=== PATIENT | male | born 1945 | race African-American/Black ===

== ENCOUNTER 2018-01-13 17:59 | Inpatient (IN) | payer MEDICARE, SELFPAY ==
[2018-01-13 18:28] LABS: Actual Bicarbonate (HCO3a) 20.8 mEq/L (22-26); Base Excess (BEa) -2.7 mEq/L (0 (+/-) 2.5); CO2 Tension 32.1 mmHg (35.0-45.0); Hematocrit-ABG 40.9 % (42.0-52.0); Hemoglobin (Hb) 12.5 g/dL (14.0-18.0); O2 Tension (PaO2) 369.3 mmHg (80.0-100.0); pH, Arterial 7.43 (7.35-7.45)
[2018-01-13 18:29] LABS: Analyzer IN Cardio ER; Calcium, Ionized 1.2 mmol/L (1.12-1.30); Puncture Site L FEM A-LINE
[2018-01-13 18:30] LABS: ALV-art Gradient -52.925 (0-20)
[2018-01-13 18:30] LABS: #Lymphocytes 0.8 thou/uL (1.20-3.40); #Monocytes 0.5 thou/uL (0.11-0.59); #Neutrophils 7.8 thou/uL (1.40-6.50); %Basophils 0.1 % (0.0-1.0); %Eosinophils 0.1 % (0.0-10.0); %Monocytes 5.9 % (0.0-10.0); %Neutrophils 84.9 % (42.0-75.0); Hemoglobin 13.5 g/dL (14.0-18.0); Mean Corpuscular HGB CONC 31.5 g/dL (32.0-36.0); Mean Corpuscular Hemoglobin 26.4 pg (27.0-31.0); Mean Corpuscular Volume 83.7 fl (80.0-94.0); Mean Platelet Volume 7.7 fL (7.4-10.4); RBC Distribution Width 13.2 % (11.5-14.5); Red Blood Cell (RBC) Count 5.13 mill/uL (4.70-6.10); White Blood Cell (WBC) Count 9.2 thou/uL (4.8-10.8)
[2018-01-13] MEDS ORDERED: Propofol 1,000 MG/100 ML VIAL IV ONE (18:30)
[2018-01-13] MEDS ORDERED: Lidocaine 1% w/Epinephrine 1:100K 20 ML VIAL ONE (18:33)
[2018-01-13 18:35] LABS: PTT 21.8 SEC (22.9-36.1); Prothrombin Time 13.6 SEC (12.0-14.7)
[2018-01-13 18:39] LABS: Large Platelets SLIGHT; MDiff Complete? YES; Ovalocytes SLIGHT = 2-5 cells (100X) (0-1/hpf); PLT Morphology Comment Appears Adequate; Platelet Count 131 thou/uL (130-400)
[2018-01-13 18:45] LABS: ALT (SGPT) 21 U/L (8-55); AST (SGOT) 25 U/L (5-34); Albumin 4.1 g/dL (3.4-4.8); Alkaline Phosphatase 69 U/L (40-150); Anion Gap 12 mmol/L (10-20); BUN (Urea Nitrogen) 19 mg/dL (8.4-25.7); Bilirubin, Total 0.7 mg/dL (0.2-1.2); Calc. Creatinine Clearance 0 mL/min (70-130); Calcium 9.1 mg/dL (7.8-10.44); Carbon Dioxide 22 mmol/L (23-31); Chloride 106 mmol/L (98-107); Estimated GFR-MDRD Greater than 90; Globulin 3.1 g/dL (2.4-3.5); Glucose 104 mg/dL (83-110); Potassium 3.7 mmol/L (3.5-5.1); Protein, Total 7.2 g/dL (5.8-8.1); Sodium 136 mmol/L (136-145)
[2018-01-13 18:54] LABS: Bilirubin Negative (Negative); Blood, Urine Small (Negative); Clarity CLEAR (Clear); Glucose, Urine (Dipstick) Negative (Negative); Leukocyte Negative (Negative); Nitrite Negative (Negative); Protein, Urine (Dipstick) Trace mg/dL (Neg-Trace); Specific Gravity, Urine 1.017 (1.002-1.036); Urobilinogen 0.2 mg/dL (0.2-1.0)
[2018-01-13 18:57] LABS: Bacteria/HPF None Seen HPF (None Seen); Hyaline Casts/LPF 0-3 HYALINE CAST LPF (0-3 Hyaline); Pathc Cast-AUWi Flag 0.29 (0-2.49); RBC/HPF 0-3 HPF (0-3); Squamous Epithelial 0-3 HPF (0-3); WBC/HPF 0-3 HPF (0-3)
[2018-01-13] MEDS ORDERED: Ondansetron HCl/PF 4 MG/2 ML Vial IVP PRN (19:20)
[2018-01-13] MEDS ORDERED: Ventilator Sedation Protocol 1 EACH FS ONE (19:20)
[2018-01-13] MEDS ORDERED: fentaNYL Citrate/PF 2,000 MCG in Sodium Chloride 0.9% 60 ML IV SCH (19:30)
[2018-01-13] MEDS ORDERED: Propofol 1,000 MG/100 ML VIAL IV PRN (19:30)
[2018-01-13] MEDS ORDERED: DISCONTINUE PREVIOUS NARCOTIC PAIN MEDICATIONS AND BENZODIAZEPINES FS SCH (19:30)
[2018-01-13] MEDS ORDERED: Morphine 2 MG/ML SYRINGE SLOW IVP PRN (19:30)
[2018-01-13] MEDS ORDERED: Fentanyl BOLUS 250 ML IVPB PRN (19:30)
[2018-01-13] MEDS ORDERED: Lorazepam 2 MG/ML VIAL SLOW IVP PRN (19:30)
--- NOTE | 2018-01-13 22:09 | CT ---
BRAIN CT WITHOUT IV CONTRAST: 01/13/18 HISTORY: 72-year-old male with history of trauma with interventricular hemorrhage was transferred from [facility]. Ventriculostomy tube was placed in the Emergency Room here. COMPARISON: 10/30/13. Large 3 x 4 cm diameter left periventricular and basal ganglia hemorrhage with extensive hemorrhage i nto the ventricular system including the lateral and third ventricles with some associated hydrocepha matthew. There is minimal hemorrhage extending into the fourth ventricle. There is approximately 1.2 cm of midline shift to the right. Right sided ventriculostomy tube in place. IMPRESSION: Large left basal ganglia intraparenchymal hemorrhage with extensive ventricular extension with marked mass effect and midline shift to the right. Ventriculostomy was placed emergently in the Emergency R oom. Hydrocephalus. On the prior 2013 study, there was an extensive right sided intraparenchymal and interventricular hem orrhage which has resolved since that old study. Continued short term followup. POS: SHERRI
--- NOTE | 2018-01-13 22:14 | CT ---
CT CERVICAL SPINE: 01/13/18 Multiple axial tomograms obtained through the cervical spine with multiplanar reconstruction. HISTORY: Head trauma with neck injury. Patient unresponsive and on respirator. 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 There is partial fusion of C2-3. 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 This produces a scoli otic curvature at this level. There are degenerative changes throughout the cervical spine with very prominent anterior osteophytes and posterior spondylitic changes especially pronounced at C3-4, C4-5, C5-6 levels. The posterior spondylitic changes results in encroachment on the spinal canal and there is foraminal stenosis on the left at C4-5 and bilateral foraminal stenosis at C5-6. No definite fracture identified. IMPRESSION: Congenital anomalies of the cervical spine. There is congenital fusion at C2-3 and there is a hemiver tebra on the right at C7 which produces scoliotic curvature. Prominent degenerative changes of the ce rvical spine. No definite cervical spine fracture identified. Posterior alignment is preserved. Findings relayed to the patient's nurse in CCU at time of dictation. POS: WILSON
[2018-01-13] MEDS: Vancomycin HCl 1.5 GM in Sodium Chloride 0.9% 250 ML 300 ML IVPB SCH (22:18)
[2018-01-13] MEDS: Sodium Chloride 0.9% 1,000 ML IV SCH (22:19)
--- NOTE | 2018-01-13 23:09 | PDOC.PN ---
- Subjective Encounter Start Date: 01/13/18 Encounter Start Time: 23:09 -: non-verbal Patient seen and examined. Consult for med mngt. On Mech Vent. Not following commands. No family at bedside. - Objective MAR Reviewed: Yes Vital Signs & Weight: Vital Signs (12 hours) Temp Pulse 01/13/18 22:44 86 01/13/18 21:00 98 F Weight Weight 137 lb 9.095 oz Most Recent Monitor Data Heart Rate from ECG 86 NIBP 140/80 NIBP BP-Mean 91 Respiration from ECG 8 SpO2 98 I&O: 01/12/18 01/13/18 01/14/18 06:59 06:59 06:59 Output Total 145 Balance -145 Result Diagrams: 01/13/18 18:11 01/13/18 18:11 Radiology Reviewed by me: Yes (CT brain - extensive left thalamic bleed) EKG Reviewed by me: Yes (SR) Phys Exam - Physical Examination Constitutional: NAD (on Mech Vent) Respiratory: no wheezing, no rales Symmetrical, Scat rhonchi Cardiovascular: RRR, no rub 2/6 SM at mitral area Gastrointestinal: soft, non-tender, no distention, positive bowel sounds Musculoskeletal: no edema Neuro/Psych - Cannot assess due to current mentation Psychiatric: A&O x 3 Skin: no rash Dx/Plan - Plan DVT proph w/SCDs IMPRESSION: 1. HTN - Will cont PRN Labetalol - Goal SBP < 150 2. ICH - Mngt per Primary team 3. Acute respiratory failure on mech ventilation due to #2 4. h/o Rt thalamic bleed in 2013 PLAN: * Cont PRN Labetalol * Add GI prophylaxis * SCDs for DVT prophylaxis * Will try to get more information from family in AM (No family at bedside) * Full code. DPOA - family - to be verified. Review of Systems - Review of Systems Other: Cannot obtain due to current mentation - Medications/Allergies Allergies/Adverse Reactions: Allergies Allergy/AdvReac Type Severity Reaction Status Date / Time No Known Drug Allergies Allergy Verified 01/13/18 20:28 Medications: Current Medications Vancomycin HCl 1.5 gm/ Sodium (Chloride) 300 mls @ 200 mls/hr IVPB Q12HR MORRIS Last Admin: 01/13/18 22:18 Dose: 300 mls Fentanyl Citrate 2,000 mcg/ (Sodium Chloride) 100 mls @ 0 mls/hr IV INF MORRIS; Per Protocol PRN Reason: Protocol Stop: 02/12/18 19:30 Fentanyl Citrate (Fentanyl Bolus) 250 mls @ 0 mls/hr IVPB PRN PRN; As Directed PRN Reason: Breakthrough pain Stop: 02/12/18 19:30 Sodium Chloride (Normal Saline 0.9%) 1,000 mls @ 75 mls/hr IV .[id number] MORRIS Last Admin: 01/13/18 22:19 Dose: 1,000 mls Labetalol HCl (Normodyne) 10 mg SLOW IVP Q2H PRN PRN Reason: SBP > 150 or DBP > 90 Lorazepam (Ativan) 2 mg SLOW IVP Q2H PRN PRN Reason: Anxiety to achieve Giraldo 2-3 Stop: 02/12/18 19:30 Morphine Sulfate (Morphine) 2 mg SLOW IVP Q2H PRN PRN Reason: Breakthrough pain Stop: 02/12/18 19:30 Discontinue Previous Narcotic Pain Medications And Benzodiazepines 1 each FS .ONE MORRIS Stop: 02/12/18 19:30 Ondansetron HCl (Zofran) 4 mg IVP BIDPRN PRN PRN Reason: Nausea/Vomiting Pneumococcal 13-Valent Conj Vacc (Prevnar) 0.5 ml IM .ONCE ONE Stop: 01/14/18 09:01 Propofol (Diprivan) 1,000 mg IV INF PRN; Protocol PRN Reason: TO ACHIEVE GIRALDO SCORE 2-3 Stop: 02/12/18 19:30 Sodium Chloride (Flush - Normal Saline) 10 ml IVF PRN PRN PRN Reason: Saline Flush History of Present Illnes - Past Medical History Cardiac: HTN (on no meds) MANAGER DAIRY: CVA (Rt thalamic bleed in 2013)
[2018-01-14] MEDS ORDERED: Acetaminophen 650 MG Suppository PR PRN (00:57)
[2018-01-14 04:44] LABS: #Lymphocytes 0.8 thou/uL (1.20-3.40); #Monocytes 0.7 thou/uL (0.11-0.59); #Neutrophils 5.2 thou/uL (1.40-6.50); %Basophils 0.2 % (0.0-1.0); %Eosinophils 0.1 % (0.0-10.0); %Lymphocytes 11.8 % (21.0-51.0); %Monocytes 10.9 % (0.0-10.0); Hemoglobin 12.4 g/dL (14.0-18.0); Mean Corpuscular HGB CONC 31.2 g/dL (32.0-36.0); Mean Corpuscular Hemoglobin 26.4 pg (27.0-31.0); Mean Corpuscular Volume 84.8 fl (80.0-94.0); Mean Platelet Volume 7.6 fL (7.4-10.4); Platelet Count 170 thou/uL (130-400); RBC Distribution Width 13.1 % (11.5-14.5); Red Blood Cell (RBC) Count 4.68 mill/uL (4.70-6.10); White Blood Cell (WBC) Count 6.7 thou/uL (4.8-10.8)
[2018-01-14 07:03] LABS: Actual Bicarbonate (HCO3a) 21.5 mEq/L (22-26); Base Excess (BEa) -1.9 mEq/L (0 (+/-) 2.5); CO2 Tension 32.1 mmHg (35.0-45.0); Hematocrit-ABG 39.7 % (42.0-52.0); Hemoglobin (Hb) 12.2 g/dL (14.0-18.0); O2 Tension (PaO2) 162.3 mmHg (80.0-100.0); pH, Arterial 7.44 (7.35-7.45)
[2018-01-14 07:04] LABS: ALV-art Gradient 11.475 (0-20); Calcium, Ionized 1.2 mmol/L (1.12-1.30); Puncture Site ALINE
[2018-01-14] MEDS: Labetalol HCl 100 MG/20 ML VIAL SLOW IVP PRN ×5 (07:20→20:03)
--- NOTE | 2018-01-14 07:25 | PRG ---
DATE OF SERVICE: 01/14/2018 SUBJECTIVE: Mr. Conde is a 72-year-old male who presented yesterday with a large left-sided thalam ic hemorrhage with intraventricular extension. An EVD was placed on the right frontal region. Overn ight, the EVD has been open at 5 cm of water and draining bloody CSF. On exam this morning he opens his eyes to pain spontaneously. He withdraws to pain on bilateral lower extremities and withdraws to pain on the left upper extremity. I am unable to get his right upper extremity to move to pain. Hi s pupils are pinpoint bilaterally, unreactive to light. His vital signs overnight have been stable. Blood pressure has been controlled with Cardene. Otherwise, vital signs are stable. Repeat CT scan was done this morning that shows increasing amount of hemorrhage, small increased amou nt of hemorrhage in the right ventricle compared to yesterday. Today we will continue to leave the E VD open to drain. I talked to the family yesterday in the emergency department after the EVD was jaziel poonam and they requested that the patient would be DNR. That order has been initiated. The family john t decided on DNR status was his daughter. If there are any further questions, please feel free to contact Neurosurgery.
--- NOTE | 2018-01-14 08:43 | HP ---
DATE OF CONSULTATION: 01/14/2018 HISTORY OF PRESENT ILLNESS: Mr. Conde is a 72-year-old male that was transferred from [facility] this evening. He was found down by his family and was last seen normal around 10:00 a.m. on 01/13/2018. He was found down unresponsive and moaning. He was out in the yard and watering plants when his daughter found him. CT scan in [place] shows left ventricular hemorrhage. The patient was intubated in [place] and given 200 of fentanyl, 20 of propofol. He had blood pressure of 165/96 and he is on no known blood thinners. He was transported via [facility] to [facility] where I evaluated him.He was found to have a left thalamus hemorrhage with intraventricular extension. On physical exam, his pupils are 1 mm, nonreactive to light. He has positive corneal reflex. He withdraws to pain on the bilateral lower extremities and localized in the left upper extremity, he withdraws in the right upper extremity. He has a positive gag reflex. Neurosurgery was consulted because of the large left thalamic hemorrhage and with intraventricular extension. ALLERGIES: No known drug allergies. CURRENT MEDICATIONS: Unable to obtain as the patient is intubated and sedated. PAST MEDICAL HISTORY: Includes scoliosis, CVA in 2014. ETOH. Unable to obtain rest of medical history at this time. PAST SURGICAL HISTORY: The patient's surgical history not available at the time of evaluation. FAMILY HISTORY: Noncontributory. REVIEW OF SYSTEMS: Unable to obtain. PHYSICAL EXAMINATION: HEENT: Normocephalic, atraumatic. Hearing is intact. Moist mucous membranes. Trachea is midline. Eyes: Pupils are 1 mm, nonreactive to light. Extraocular muscles are not able to assessed. Sclerae is white. CARDIOVASCULAR: The patient has regular rate and rhythm. Normal S1, S2 heart sounds, no distal cyanosis or clubbing. RESPIRATORY: The patient is intubated and sedated. He has bilateral symmetric chest rise. NEUROLOGIC: Cranial nerves: Pupils are 1 mm and nonreactive to light. Positive corneal reflex. He withdraws to pain in the lower extremities bilaterally. He localizes to pain in the left upper extremity, and there is non- purposeful movement in the right upper extremity. He has a positive gag reflex. ASSESSMENT: Mr. Royal Conde is a 72-year-old man who presents with A large left thalamus hemorrhage with intraventricular extension. He is intubated and sedated, transferred from [place] via [facility]. PLAN: Emergently put in EVD, as this is lifesaving operation. Family was not around to obtain consent for the EVD. The EVD was placed in the right frontal region. I will get a repeat CT scan after the EVD is in place. We will leave the EVD open at 5 cm overnight. I will start him on antibiotic vancomycin. We will get a repeat CT scan at 4:00 a.m. tomorrow morning. The patient's platelets and coags were normal. Continue neuro checks overnight in the ICU q.1 hours and keep his systolic blood pressure less than 150. If there are any further questions, please feel free to contact Neurosurgery. KYMBERLY
[2018-01-14] MEDS ORDERED: Prevnar 13-Val Conj/PF 0.5 ML SYRINGE IM ONE (09:00)
--- NOTE | 2018-01-14 09:07 | CT ---
PRELIMINARY REPORT/[facility]/EMERGENTY AFTER-HOURS PROCEDURE CT Head Without Intravenous Contrast CLINICAL HISTORY: 72 years old, male; Signs and symptoms; Other: Hemorrhagic stroke; Patient HX: F/u hemorrhagic stroke TECHNIQUE: Axial computed tomography images of the head/brain without intravenous contrast. COMPARISON: CT Brain WO Con 2018-01-13 19:42 FINDINGS: Brain: Large left basal ganglia hemorrhage extending into the body of the left lateral ventricle with large amount of intraventricular clot, all of which is stable compared to the prior study. Stable ri ght frontal shunt catheter with tip at the suprasellar cistern, traversing the frontal horn of the ri ght lateral ventricle. Stable ventriculomegaly. Stable right frontotemporal subarachnoid hemorrhage. Stable rightward midline shift. Ventricles: See above. Bones/joints: Unremarkable. No acute fracture. Soft tissues: Unremarkable. Sinuses: Fluid level in the sphenoid sinus has increased in size compared to the prior study, potenti ally representing sinusitis. Mastoid air cells: Unremarkable as visualized. No mastoid effusion. IMPRESSION: 1. Large left basal ganglia hemorrhage extending into the body of the left lateral ventricle with lar ge amount of intraventricular clot, all of which is stable compared to the prior study. Stable right frontal shunt catheter with tip at the suprasellar cistern, traversing the frontal horn of the right lateral ventricle. Stable ventriculomegaly. Stable right frontotemporal subarachnoid hemorrhage. Stable right franks midline shift. 2. Fluid level in the sphenoid sinus has increased in size compared to the prior study, potentially r epresenting sinusitis. Thank you for allowing us to participate in the care of your patient. Dictated and Authenticated by: Grupo Millard MD 01/14/2018 4:26 AM Central Time ([place] & [place]) FINAL REPORT EMERGENCY AFTER HOURS CT BRAIN: Date: 01/14/18 FINDINGS/IMPRESSION: I agree with the findings and impression given in the preliminary report per [facility] physician. There is a stable left basal ganglia hemorrhage which extends into the lateral ventricles with a significant of intraventricular hemorrhage. No downward herniation is seen at this time. The ventriculostomy cath eter is unchanged in position. There is also a stable small amount of subarachnoid hemorrhage in the posterior aspect of the left frontal lobe. POS: OFF
[2018-01-14] MEDS: Pantoprazole 40 MG VIAL IVP SCH (10:18)
[2018-01-14] MEDS: Vancomycin HCl 1.5 GM in Sodium Chloride 0.9% 250 ML 300 ML IVPB SCH ×2 (10:19→20:03)
--- NOTE | 2018-01-14 10:40 | CON ---
DATE OF CONSULTATION: 01/14/2018 HISTORY: Royal Conde is a 72-year-old gentleman who was taken to [facility] in [facility] where he was found to have a left thalamic bleed following a fall as per his daughter who is at the bedside. He has been intubated. He is on the vent. He has longstanding history of hypertension, but apparently he is not taking any medication. He is a former smoker, quit many years ago. He drinks infrequently according to the christiano ghter present at bedside. He apparently received 100 mcg of Fent en route. He is presently intubated. Additional information from the daughter who is at the bedside and apparently history from previous edical records. He was here in 2013 for a problem with intracranial hemorrhage on the right side wit h left hemiparesis. At this time, his intracranial hemorrhage was on the left side. He has ongoing marked right-sided we akness. He has been seen by Neurosurgery. PAST MEDICAL HISTORY: Pertinent for previous right-sided hemorrhage, left-sided cerebrovascular acc ident, history of alcohol abuse. Former tobacco abuse, history of hypertension, he takes no medicati on. PAST SURGICAL HISTORY: As outlined, none. He was apparently a DNR during his previous admission. REVIEW OF SYSTEMS: Otherwise unobtainable. PHYSICAL EXAMINATION: GENERAL: The patient is intubated on the vent, no sedation. HEENT: Pupils are equal, 2 mm, dense right-sided hemiparesis. Nose, mouth, throat negative. NECK: Unremarkable. VITAL SIGNS: Pulse 78, blood pressure 150/80, respirations 18, sats 97. CHEST: Chest revealed bilateral rhonchi. CARDIAC: Normal S1-S2. No gallops. ABDOMEN: Soft. No masses. EXTREMITIES: Trace edema. LABORATORY DATA: White count 6000, H&H 12 and 38, platelet count 70. PO2 is 162, pCO2 37.44, rate o f 14, 30%, 4, tidal volume. Electrolytes are normal. IMPRESSION: 1. Massive left intracerebral hemorrhage with right-sided weakness. 2. History of hypertension, noncompliance with medication. 3. History of previous alcohol abuse. 4. Previous hemorrhage on the right side with left-sided weakness. 5. Previous DNR by history. PLAN: Vent support, nutrition next 24-48 hours. Discuss with family, ongoing issues. Await further input from Neurosurgery. Prognosis is guarded. Forty-five minutes critical care time.
[2018-01-14] MEDS: Sodium Chloride 0.9% 1,000 ML IV SCH (11:33)
--- NOTE | 2018-01-14 20:05 | PDOC.PN ---
- Subjective Encounter Start Date: 01/14/18 Encounter Start Time: 19:50 Subjective: f/u for ICH with EVD, unresponsive with ? decorticate posturing. Remains -: mech ventilated. Nsg reports minimal response to stimuli. - Objective Resuscitation Status: Resuscitation Status DNR:Do Not Resuscitate MAR Reviewed: Yes Vital Signs & Weight: Vital Signs (12 hours) Temp Pulse Resp BP 01/14/18 18:31 84 01/14/18 18:00 14 01/14/18 16:00 99.6 F 14 01/14/18 14:41 106 H 149/78 H 01/14/18 14:00 14 01/14/18 12:00 98.7 F 14 01/14/18 10:44 78 134/64 01/14/18 10:18 86 01/14/18 10:00 14 01/14/18 08:00 99.4 F 14 Weight Admit Weight 137 lb 9.095 oz Weight 137 lb 12.623 oz Most Recent Monitor Data Heart Rate from ECG 83 NIBP 128/73 NIBP BP-Mean 81 Respiration from ECG 22 SpO2 98 I&O: 01/13/18 01/14/18 01/15/18 06:59 06:59 06:59 Intake Total 644 948 Output Total 464 518 Balance 180 430 Result Diagrams: 01/14/18 04:05 01/13/18 18:11 Radiology Reviewed by me: Yes (CT Brain - large L basal ganglia hemorrhage with left lateral extension) EKG Reviewed by me: Yes (Tele - SR) Phys Exam - Physical Examination unresponsive to stimuli pinpoint pupils bilat, ETT in place, EVD in place Neck: no JVD, supple Respiratory: no wheezing, clear to auscultation bilateral Cardiovascular: RRR Gastrointestinal: soft, non-tender, no distention, positive bowel sounds Musculoskeletal: pulses present, edema present unresponsive, blinks eyes unprovoked, does not track with eyes, ? decorticate posturing on L-side, R hemiparesis Skin: normal turgor, cap refill <2 seconds Deviation from normal: Hubbard with yoshi urine Dx/Plan (1) Intracranial hemorrhage Code(s): I62.9 - NONTRAUMATIC INTRACRANIAL HEMORRHAGE, UNSPECIFIED Status: Acute Comment: Massive L basal ganglia hemorrhage with EVD, continue per Neurosurgery mgmt (2) Acute respiratory failure with hypoxia Code(s): J96.01 - ACUTE RESPIRATORY FAILURE WITH HYPOXIA Status: Acute Comment: Continue SIMV, general pulmonary support (3) HTN (hypertension) Code(s): I10 - ESSENTIAL (PRIMARY) HYPERTENSION Status: Acute (4) Encephalopathy acute Code(s): G93.40 - ENCEPHALOPATHY, UNSPECIFIED Status: Acute - Plan * .
[2018-01-14] MEDS: Morphine 4 MG/ML VIAL SLOW IVP PRN (22:38)
--- NOTE | 2018-01-15 01:04 | PDOC.PN ---
- Subjective Encounter Start Date: 01/14/18 Encounter Start Time: 17:00 -: non-verbal Subjective: family at bedside - Objective Resuscitation Status: Resuscitation Status DNR:Do Not Resuscitate Vital Signs & Weight: Vital Signs (12 hours) Temp Pulse Resp BP Pulse Ox 01/15/18 00:00 14 01/14/18 23:00 99 F 01/14/18 22:20 93 01/14/18 22:00 16 01/14/18 20:03 84 152/72 H 01/14/18 20:00 98.4 F 84 14 98 01/14/18 19:00 98.4 F 01/14/18 18:31 84 01/14/18 18:00 14 01/14/18 16:00 99.6 F 14 01/14/18 14:41 106 H 149/78 H 01/14/18 14:00 14 Weight Admit Weight 137 lb 9.095 oz Weight 137 lb 12.623 oz Most Recent Monitor Data Heart Rate from ECG 81 NIBP 124/70 NIBP BP-Mean 81 Respiration from ECG 14 SpO2 97 I&O: 01/13/18 01/14/18 01/15/18 06:59 06:59 06:59 Intake Total 644 948 Output Total 464 771 Balance 180 177 Result Diagrams: 01/17/18 04:45 01/17/18 04:45 Dx/Plan - Plan IMPRESSION: 1. HTN - Will cont PRN Labetalol - Goal SBP < 150 2. ICH - Mngt per Primary team 3. Acute respiratory failure on [facility] ventilation due to #2 4. h/o Rt thalamic bleed in 2013 PLAN: * Discussed patient's overall prognosis with family. THey are considering transition to hospice. Review of Systems - Medications/Allergies Allergies/Adverse Reactions: Allergies Allergy/AdvReac Type Severity Reaction Status Date / Time No Known Drug Allergies Allergy Verified 01/13/18 20:28
[2018-01-15 04:58] LABS: #Lymphocytes 0.7 thou/uL (1.20-3.40); #Monocytes 0.8 thou/uL (0.11-0.59); %Basophils 0.1 % (0.0-1.0); %Eosinophils 0.2 % (0.0-10.0); %Lymphocytes 8.1 % (21.0-51.0); %Monocytes 9.6 % (0.0-10.0); Hemoglobin 11.7 g/dL (14.0-18.0); Mean Corpuscular HGB CONC 32.9 g/dL (32.0-36.0); Mean Corpuscular Hemoglobin 27.2 pg (27.0-31.0); Mean Corpuscular Volume 82.7 fl (80.0-94.0); Mean Platelet Volume 7.4 fL (7.4-10.4); Platelet Count 153 thou/uL (130-400); RBC Distribution Width 13.1 % (11.5-14.5); Red Blood Cell (RBC) Count 4.29 mill/uL (4.70-6.10); White Blood Cell (WBC) Count 8.5 thou/uL (4.8-10.8)
[2018-01-15 05:08] LABS: Anion Gap 10 mmol/L (10-20); BUN (Urea Nitrogen) 27 mg/dL (8.4-25.7); Calc. Creatinine Clearance 74 mL/min (70-130); Calcium 8.6 mg/dL (7.8-10.44); Carbon Dioxide 21 mmol/L (23-31); Chloride 109 mmol/L (98-107); Estimated GFR-MDRD Greater than 90; Glucose 131 mg/dL (83-110); Potassium 3.6 mmol/L (3.5-5.1); Sodium 136 mmol/L (136-145)
[2018-01-15] MEDS: Sodium Chloride 0.9% 1,000 ML IV SCH ×2 (05:26→18:29)
[2018-01-15 07:52] LABS: Actual Bicarbonate (HCO3a) 20.5 mEq/L (22-26); Base Excess (BEa) -1.8 mEq/L (0 (+/-) 2.5); CO2 Tension 27.8 mmHg (35.0-45.0); Hematocrit-ABG 35.9 % (42.0-52.0); Hemoglobin (Hb) 11.5 g/dL (14.0-18.0); O2 Tension (PaO2) 120.6 mmHg (80.0-100.0); pH, Arterial 7.49 (7.35-7.45)
[2018-01-15 07:53] LABS: Calcium, Ionized 1.2 mmol/L (1.12-1.30); Puncture Site ALINE
[2018-01-15] MEDS: Pantoprazole 40 MG VIAL IVP SCH (08:29)
--- NOTE | 2018-01-15 09:06 | RAD ---
CHEST 1 VIEW: Date: 01/15/18 HISTORY: Dyspnea. Follow-up. COMPARISON: 11/02/13. FINDINGS: Cardiac silhouette is magnified and upper limits of normal in size. Pulmonary vasculature is also upp er limits of normal with mild patchy bilateral perihilar and bibasilar infiltrates. Lungs are hyperin flated. Mediastinum is midline with aortic calcification. Nasogastric tube descends to the stomach. T ip of an endotracheal catheter overlies the thoracic inlet. There is no lobar consolidation or eviden ce of pneumothorax. monitoring manager leads overlie the chest. IMPRESSION: 1. Borderline pulmonary vascular congestion. 2. COPD. 3. Atherosclerosis. POS: [facility]
[2018-01-15] MEDS: Vancomycin HCl 1.5 GM in Sodium Chloride 0.9% 250 ML 300 ML IVPB SCH ×2 (09:08→21:50)
[2018-01-15] MEDS: Labetalol HCl 100 MG/20 ML VIAL SLOW IVP PRN ×2 (10:43→17:44)
--- NOTE | 2018-01-15 11:01 | CT ---
CT HEAD NONCONTRAST DATE: 01/15/18 HISTORY: Intracranial hemorrhage. Ventricular shunt. Follow-up. COMPARISON: 01/14/18. FINDINGS: Large amount of intraventricular hemorrhage with rightward deviation of the septum pellucidum and dis tention of the ventricular system are similar in appearance to the previous study. Right frontal vent riculostomy shunt remains in place. Small amount of subarachnoid hemorrhage involving primarily the r ight frontotemporal region is stable. Diffuse cerebral edema is similar in appearance to the previous study. IMPRESSION: Extensive intracranial hemorrhage and other findings are stable. POS: [facility]
--- NOTE | 2018-01-15 13:00 | PDOC.PN ---
- Subjective Encounter Start Date: 01/15/18 Encounter Start Time: 12:50 Subjective: No rewsponse to painful stimuli. -: Intubated. - Objective Resuscitation Status: Resuscitation Status DNR:Do Not Resuscitate Vital Signs & Weight: Vital Signs (12 hours) Temp Pulse Resp BP Pulse Ox 01/15/18 12:00 99.6 F 15 01/15/18 10:00 14 01/15/18 08:00 19 01/15/18 07:31 101.2 F H 82 14 97 01/15/18 07:15 80 137/70 01/15/18 07:00 101.2 F H 01/15/18 06:00 18 01/15/18 04:00 18 01/15/18 03:00 99.5 F 01/15/18 02:12 80 01/15/18 02:00 18 Weight Admit Weight 137 lb 9.095 oz Weight 139 lb 5.314 oz Most Recent Monitor Data Heart Rate from ECG 88 NIBP 131/68 NIBP BP-Mean 79 Respiration from ECG 51 SpO2 98 I&O: 01/14/18 01/15/18 01/16/18 06:59 06:59 06:59 Intake Total 644 2114 Output Total 464 1031 192 Balance 180 1083 -192 Result Diagrams: 01/15/18 04:51 01/15/18 04:51 Phys Exam - Physical Examination Neck: no JVD Respiratory: clear to auscultation bilateral Cardiovascular: RRR Gastrointestinal: soft Musculoskeletal: no edema Dx/Plan (1) Acute respiratory failure with hypoxia Code(s): J96.01 - ACUTE RESPIRATORY FAILURE WITH HYPOXIA Status: Acute Plan: f/u with pulmonary.. Comment: intubated. (2) HTN (hypertension) Code(s): I10 - ESSENTIAL (PRIMARY) HYPERTENSION Status: Acute Comment: BP satisfactory.. (3) Intracranial hemorrhage Code(s): I62.9 - NONTRAUMATIC INTRACRANIAL HEMORRHAGE, UNSPECIFIED Status: Acute Comment: Massive L basal ganglia hemorrhage with EVD, continue per Neurosurgery mgmt - Plan -: Continue supportive therapy.. * .
--- NOTE | 2018-01-15 14:42 | PRG ---
DATE OF PROCEDURE: 01/15/2018 SUBJECTIVE: Mr. Conde is now 2 days status post admission for a large intraventricular hemorrhage. He has a ventriculostomy drain and that early this morning clotted. I have flushed it out and tiffanie ve clot and appears to be slowly draining again. He has had a series of CT examinations, which show very large intraventricular hemorrhage with midline shift. Neurologically, he has a very poor neurologic exam. He has been off of sedation now for over 48 hour s, and he had at best withdrawals in the right upper extremity. He has no purposeful movements. [place] y infrequently he will have some spontaneous movement of his hand. I had a discussion with one of his daughters today just to reiterate the underlying diagnosis, imagin g, findings and what I believe to be very poor prognosis. The family continues to have discussions w ith respect to a level of care moving forward. We will continue with CSF drainage and medical manage ment with supportive care.
[2018-01-15 20:18] LABS: Vancomycin, Trough 14.5 ug/mL
[2018-01-15] MEDS: Morphine 4 MG/ML VIAL SLOW IVP PRN (21:51)
--- NOTE | 2018-01-16 00:27 | EKG ---
Test Reason : Blood Pressure : / mmHG Vent. Rate : 070 BPM Atrial Rate : 070 BPM P-R Int : 170 ms QRS Dur : 082 ms QT Int : 392 ms P-R-T Axes : 083 076 047 degrees QTc Int : 423 ms Normal sinus rhythm Normal ECG Confirmed by SWATI RAMOS ([id number]), production editor CHERY JOHNSON ([id number] on 01/16/2018 12:25:35 AM Referred By: Confirmed By:SWATI RAMOS
[2018-01-16] MEDS: Morphine 4 MG/ML VIAL SLOW IVP PRN ×3 (02:18→17:03)
[2018-01-16] MEDS: Sodium Chloride 0.9% 1,000 ML IV SCH ×2 (02:20→09:04)
[2018-01-16 04:32] LABS: ALT (SGPT) 13 U/L (8-55); ALT (SGPT) 14 U/L (8-55); AST (SGOT) 21 U/L (5-34); Albumin 3.2 g/dL (3.4-4.8); Alkaline Phosphatase 58 U/L (40-150); Anion Gap 11 mmol/L (10-20); BUN (Urea Nitrogen) 25 mg/dL (8.4-25.7); Bilirubin, Direct 0.3 mg/dL (0.1-0.3); Bilirubin, Total 0.6 mg/dL (0.2-1.2); Calc. Creatinine Clearance 77 mL/min (70-130); Calcium 8.5 mg/dL (7.8-10.44); Carbon Dioxide 21 mmol/L (23-31); Chloride 111 mmol/L (98-107); Estimated GFR-MDRD Greater than 90; Globulin 2.8 g/dL (2.4-3.5); Glucose 128 mg/dL (83-110); Potassium 3.6 mmol/L (3.5-5.1); Protein, Total 6.1 g/dL (5.8-8.1); Sodium 139 mmol/L (136-145)
[2018-01-16 04:36] LABS: INR-International Normal Ratio 1.1; PTT 34.2 SEC (22.9-36.1); Prothrombin Time 14.7 SEC (12.0-14.7)
[2018-01-16 04:43] LABS: #Lymphocytes 0.9 thou/uL (1.20-3.40); #Monocytes 0.9 thou/uL (0.11-0.59); #Neutrophils 6.1 thou/uL (1.40-6.50); %Eosinophils 0.3 % (0.0-10.0); %Lymphocytes 11.3 % (21.0-51.0); %Monocytes 11.1 % (0.0-10.0); %Neutrophils 77.3 % (42.0-75.0); Hemoglobin 11.5 g/dL (14.0-18.0); Mean Corpuscular HGB CONC 32.7 g/dL (32.0-36.0); Mean Corpuscular Hemoglobin 28.1 pg (27.0-31.0); Mean Platelet Volume 8.3 fL (7.4-10.4); Platelet Count 147 thou/uL (130-400); RBC Distribution Width 13.3 % (11.5-14.5); Red Blood Cell (RBC) Count 4.11 mill/uL (4.70-6.10); White Blood Cell (WBC) Count 7.8 thou/uL (4.8-10.8)
--- NOTE | 2018-01-16 07:52 | RAD ---
CHEST 1 VIEW: Date: 01/16/18 HISTORY: Dyspnea. Follow-up. COMPARISON: 01/15/18. FINDINGS: Cardiac silhouette is magnified by projection. Pulmonary vasculature is less pronounced than on the p rior study. Lungs are hyperinflated. Mediastinum is midline. Lines and tubes appear unchanged in posi tion. media monitor leads overlie the chest. IMPRESSION: 1. Interval decrease in radiographic degree of pulmonary vascular congestion. 2. Other findings are stable. POS: [facility]
[2018-01-16 07:54] LABS: Actual Bicarbonate (HCO3a) 22.4 mEq/L (22-26); Base Excess (BEa) -1.1 mEq/L (0 (+/-) 2.5); CO2 Tension 32.7 mmHg (35.0-45.0); O2 Tension (PaO2) 90.3 mmHg (80.0-100.0); pH, Arterial 7.45 (7.35-7.45)
[2018-01-16 07:58] LABS: Calcium, Ionized 1.3 mmol/L (1.12-1.30); Hemoglobin (Hb) 10.3 g/dL (14.0-18.0)
[2018-01-16 07:59] LABS: ALV-art Gradient 82.725 (0-20); Puncture Site ALINE
[2018-01-16] MEDS: Pantoprazole 40 MG VIAL IVP SCH (08:54)
[2018-01-16] MEDS: Vancomycin HCl 1.5 GM in Sodium Chloride 0.9% 250 ML 300 ML IVPB SCH ×2 (09:03→20:17)
--- NOTE | 2018-01-16 10:12 | PDOC.PN ---
- Subjective Encounter Start Date: 01/16/18 Encounter Start Time: 09:30 -: Sluggish response to pain. - Objective Resuscitation Status: Resuscitation Status DNR:Do Not Resuscitate Vital Signs & Weight: Vital Signs (12 hours) Temp Pulse Resp BP Pulse Ox 01/16/18 08:00 98.8 F 84 14 98 01/16/18 07:33 74 134/66 01/16/18 06:00 13 01/16/18 05:00 99.5 F 01/16/18 04:00 14 01/16/18 02:04 84 134/77 01/16/18 02:00 14 01/16/18 00:00 99.1 F 13 01/15/18 22:24 94 141/73 H Weight Admit Weight 137 lb 9.095 oz Weight 138 lb 3.2 oz Most Recent Monitor Data Heart Rate from ECG 67 NIBP 132/63 NIBP BP-Mean 90 Respiration from ECG 14 SpO2 97 I&O: 01/15/18 01/16/18 01/17/18 06:59 06:59 06:59 Intake Total 2114 2862 Output Total 1031 1427 204 Balance 1083 1435 -204 Result Diagrams: 01/16/18 03:27 01/16/18 03:27 Phys Exam - Physical Examination Neck: no JVD Respiratory: no rales Cardiovascular: RRR Gastrointestinal: soft Musculoskeletal: no edema Dx/Plan (1) Acute respiratory failure with hypoxia Code(s): J96.01 - ACUTE RESPIRATORY FAILURE WITH HYPOXIA Status: Acute Comment: intubated. (2) HTN (hypertension) Code(s): I10 - ESSENTIAL (PRIMARY) HYPERTENSION Status: Acute Comment: BP satisfactory.. (3) Intracranial hemorrhage Code(s): I62.9 - NONTRAUMATIC INTRACRANIAL HEMORRHAGE, UNSPECIFIED Status: Acute Comment: Massive L basal ganglia hemorrhage with EVD, continue per Neurosurgery mgmt - Plan -: Continue supportive therapy -: Poor prognostic. -: Family is considering TNDA. * .
--- NOTE | 2018-01-16 11:04 | PRG ---
DATE OF SERVICE: 01/15/2018 SUBJECTIVE: Mr. Royal Conde is intubated on the vent status post intracerebral hemorrhage. OBJECTIVE: VITAL SIGNS: His temperature is 101.2, blood pressure 130/70, pulse 80, respiration rate 18. I's and O's are GOOD HEENT: Pupils are equal. CHEST: Decreased breath sounds, no wheezing or crackles. CARDIAC: Normal S1, S2, no gallops. ABDOMEN: Soft. NEUROLOGIC: Unresponsive. X-RAY FINDINGS: X-ray shows minimal bibasilar atelectatic changes. LABORATORY DATA: His white count is 8000, H&H is STABLE, platelet count 153, pO2 is 120, PCO2 27, pH 7.49 on a rate of 14, 30%. His creatinine is normal. Electrolytes are normal. IMPRESSION: 1. Respiratory failure. 2. Left thalamic hemorrhage. 3. Hypertension. PLAN: He is clearly not weanable at this stage. His long-term prognosis is guarded. Await input from neurosurgery regarding the family's wishes. We will start low dose tube feedings. We will follow. One-half hour critical care time. [facility]
--- NOTE | 2018-01-16 11:47 | PRG ---
DATE OF SERVICE: 01/16/2018 SUBJECTIVE: Mr. Royal Conde is intubated on the vent, no sedation. X-ray is clear. Neurological ly, unresponsive. Pupils are equal. He is moving his left side only. OBJECTIVE: VITAL SIGNS: Pulse 78, blood pressure 130/68, sats are 90%, respirations 18. I's and O's are 2862 i n, 142 out. Maximum temperature has been 99. CHEST: Anterior rhonchi. CARDIAC: Normal S1, S2, no gallops. ABDOMEN: Soft. EXTREMITIES: No edema. NECK: Unremarkable. LABORATORY DATA: PO2 90, PCO2 6745. White count 7000, hemoglobin and hematocrit are 11 and 35, plat elet count is normal. Culture all negative. IMPRESSION: Intracranial hemorrhage, respiratory failure, hypertension, encephalopathy. PLAN: The patient has been a DNR as per family's wishes. Discussed with family ongoing care when t hey arrive. In the meantime, nutrition, supportive care and PT. One-half hour critical care time.
--- NOTE | 2018-01-16 14:00 | PRG ---
DATE OF SERVICE: 01/16/2018 Mr. Conde remains in the ICU. He remains intubated and off sedation. His ventriculostomy is paten t and slowly draining. Neurologically, he is unchanged. He has a very poor neurologic prognosis. T he plan remains supportive care.
[2018-01-16] MEDS: Labetalol HCl 100 MG/20 ML VIAL SLOW IVP PRN (20:17)
[2018-01-17] MEDS: Morphine 4 MG/ML VIAL SLOW IVP PRN ×4 (00:53→17:52)
[2018-01-17] MEDS: Labetalol HCl 100 MG/20 ML VIAL SLOW IVP PRN (03:42)
[2018-01-17 05:23] LABS: #Lymphocytes 0.8 thou/uL (1.20-3.40); #Monocytes 0.7 thou/uL (0.11-0.59); #Neutrophils 4.8 thou/uL (1.40-6.50); %Basophils 0.5 % (0.0-1.0); %Eosinophils 0.8 % (0.0-10.0); %Lymphocytes 12.8 % (21.0-51.0); %Monocytes 11.5 % (0.0-10.0); %Neutrophils 74.4 % (42.0-75.0); Hemoglobin 11.1 g/dL (14.0-18.0); Mean Corpuscular HGB CONC 32.2 g/dL (32.0-36.0); Mean Corpuscular Hemoglobin 27.7 pg (27.0-31.0); Mean Corpuscular Volume 86.2 fl (80.0-94.0); Mean Platelet Volume 7.7 fL (7.4-10.4); Platelet Count 153 thou/uL (130-400); RBC Distribution Width 13.1 % (11.5-14.5); Red Blood Cell (RBC) Count 4.02 mill/uL (4.70-6.10); White Blood Cell (WBC) Count 6.5 thou/uL (4.8-10.8)
[2018-01-17 05:39] LABS: Anion Gap 7 mmol/L (10-20); BUN (Urea Nitrogen) 24 mg/dL (8.4-25.7); Calc. Creatinine Clearance 79 mL/min (70-130); Calcium 8.6 mg/dL (7.8-10.44); Carbon Dioxide 25 mmol/L (23-31); Chloride 113 mmol/L (98-107); Estimated GFR-MDRD Greater than 90; Glucose 127 mg/dL (83-110); Potassium 3.3 mmol/L (3.5-5.1); Sodium 142 mmol/L (136-145)
[2018-01-17] MEDS ORDERED: niCARdipine 20MG In NaCl 20 MG/200 ML BAG IVPB SCH ×2 (05:45→14:30)
--- NOTE | 2018-01-17 07:01 | PRG ---
DATE OF SERVICE: 01/17/2018 SUBJECTIVE: Mr. Conde is a 72-year-old male I saw in his ICU room this morning. This morning his potassium is 3.3. On exam he is able to open his eyes to pain and withdraws some slightly in the lef t lower extremity. I did not see him moving his right lower extremity or right upper extremity. Ove r the weekend, there was concern that his EVD was clotted. However, the EVD has been flushed and it has been putting out appropriate amounts of bloody CSF overnight. His vital signs have been stable and systolic blood pressures have been running in the high 120s to 1 40s. Family was in the room this morning and had some questions that they wanted to ask Dr. Blanca mcgregor regarding his condition. I believe the plan for today is to see whether he is able to breathe on h is own. If there are any further questions, please feel free to contact Neurosurgery. In the meantime we wi ll continue to leave his EVD open at 5 unless the ventricular blood continued to drain.
--- NOTE | 2018-01-17 08:06 | RAD ---
SINGLE VIEW OF CHEST: Date: 01/17/18 COMPARISON: 01/16/18. HISTORY: Ventilated patient. FINDINGS: Single view of chest shows a normal sized cardiomediastinal silhouette. Lines and tubes are unchanged in position. There is no evidence of consolidation, mass, or pleural effusion. IMPRESSION: Stable exam. POS: [facility]
--- NOTE | 2018-01-17 08:52 | PRG ---
DATE OF SERVICE: 01/17/2018 The patient remains intubated on the vent A6. Family at the bedside. He is basically unresponsive. Moves the left side from time to time. PHYSICAL EXAMINATION: VITAL SIGNS: Blood pressure 134/59, pulse 66, respiratory rate 18. He is afebrile. CHEST: Chest revealed decreased breath sounds with anterior rhonchi. CARDIAC: Normal S1, S2, no gallops. ABDOMEN: Soft. EXTREMITIES: No edema. LABORATORY: His electrolytes are normal. White count is 6000, H&H 11 and 34, platelet count 53. X- ray shows no obvious infiltrates. No gases were done this morning. IMPRESSION: 1. Intracerebral hemorrhage. 2. Respiratory failure. 3. Hypertension. PLAN: As per Neurosurgery, CT head is being ordered again to assess his intracerebral hemorrhage. N o surgical intervention is planned. Continue nutrition, PT. Overall, prognosis is grave. One-half hour critical care time.
--- NOTE | 2018-01-17 09:19 | PRG ---
DATE OF SERVICE: 01/15/2018 SUBJECTIVE: Mr. Conde is on the second day of his hospital admission for deep left thalamic hemorr neva of significant size with a profound amount of bilateral intraventricular hemorrhage. He had an EVD placed in the frontal horn of the right lateral ventricle since admission. This has been set at 5 cm of water and has been draining consistently since that time roughly 15-20 cc per hour and has no t yet been clamped. Unfortunately, his neurologic status over this interval has not changed since hi s presentation and again today most withdrawal in the lower extremities and does not move the upper e xtremities. If disturbed he will open his eyes, but this is essentially it he does not have a cornea l reflex. His pupils are pinpoint, minimal reactivity. While rounding in the rest the hospital afte r initially seeing him, I was contacted again by the nursing staff letting me know that his EVD had u nfortunately stopped draining and was no longer pulsatile. I attempted to flush his drain tubing for the possibility of clot but was still unfortunately unable to obtain a continuous stream or pulsatil e active within the tube. Discussed with Dr. Smith and plan for now was just to be monitored with CT scan and not replace EVD at present. This is Houston Blackman PA-C, dictating for Emilio Smith M.D.
[2018-01-17] MEDS: Vancomycin HCl 1.5 GM in Sodium Chloride 0.9% 250 ML 300 ML IVPB SCH (09:46)
[2018-01-17] MEDS: Pantoprazole 40 MG VIAL IVP SCH (09:46)
[2018-01-17] MEDS: Sodium Chloride 0.9% 1,000 ML IV SCH ×2 (09:47→22:32)
--- NOTE | 2018-01-17 12:20 | PRG ---
DATE OF SERVICE: 01/16/2018 SUBJECTIVE: Mr. Conde this morning is stable from yesterday's examination. His EVD has actually s tarted to picker operator drainage again and is now patent. We have been unable to get a manual ICP off of t his, but at least it is open and actively draining, total drainage every night was about 30 mL. Othe rwise, his examination remains unchanged. Plan at this time will be to continue to observe.
--- NOTE | 2018-01-17 12:34 | CT ---
CT OF THE BRAIN WITHOUT COTNRAST: INDICATION: Followup intracranial hemorrhage. COMPARISON: Prior exam dated 01/15/18. FINDINGS: The intraparenchymal hemorrhage centered within the left fitzpatrick radiata is likely stable in size when accounting for slight differences in technique. It previously measured 4.6 cm and now measures 4.7 cm. The extent of the intraventricular hemorrhage and hydrocephalus was stable. There is stable hem orrhage tracking along the ventricular shut catheter site of the right frontal lobe. There is scatte red subarachnoid hemorrhage seen within sulci of the frontoparietal cortex as well as within the sylv cynthia fissure. The extent of the midline shift from left to right measures approximately 8.4 mm on zaki munson's exam where it measured previously 1 cm. There is mucosal thickening and fluid filling the ethmo id air cells, sphenoid sinuses, and visualized aspects of the right maxillary sinus. The extent of t he paranasal sinus appears slightly more pronounced than on the comparison. IMPRESSION: Overall likely stable examination of the brain with a large intraparenchymal hemorrhage centered with in the region of the left fitzpatrick radiata. The extent of the intraventricular hemorrhage is stable. Scattered subarachnoid hemorrhage is stable. The extent of the midline shift has mildly improved fro m 8 mm rather than 1 cm. The extent of the hydrocephalus and blunting of the lateral ventricles appe ars stable. There is worsening paranasal sinus disease. POS: [facility]
--- NOTE | 2018-01-17 12:38 | PRG ---
DATE OF SERVICE: 01/17/2018 I saw Mr. Conde in the ICU room this morning. He has been visited by his daughters and discussed w ith them the poor prognosis with a second intracerebral hemorrhage affecting the basal ganglia opposi te his prior hemorrhage in the unlikelihood of being independent in the future. Blood pressure is currently controlled on the IV drip. His other vital signs are stable. He is roula thing with a ventilator. On examination, he opens his eyes to stimulus. He withdraws the left upper extremity and both lower extremities, the right is slower and weaker. The external ventricular drain is working well today. He got a couple of clots to pass out of the sy stem and left open at 5 cm. We are going to get a CT scan of the brain with a drain open. As the ventricles look relatively norm al in size and there was good washout of the blood, we will start clamping the drain and monitoring h is ICP. We will get a followup CAT scan on Wednesday after the scan today if we elect to clamp the d rain tomorrow.
[2018-01-17 12:59] VITALS: BMI 21.7
[2018-01-17] MEDS ORDERED: Lorazepam 2 MG/ML VIAL SLOW IVP PRN (16:20)
[2018-01-17] MEDS ORDERED: Scopolamine 1.5 mg/72 hour Patch TD SCH (16:30)
[2018-01-17] MEDS ORDERED: Morphine 4 MG/ML VIAL SLOW IVP PRN (17:00)
--- NOTE | 2018-01-17 17:09 | PRG ---
DATE OF SERVICE: 01/17/2018 SUBJECTIVE: I just got off the phone with Mr. Paige's daughter. She is inquisitive about the resul ts of the CT done this morning. We went over those results. I indicated that there is still signifi cant amount of blood in the ventricular system. The drain is in place, but I did not see a significa nt improvement in the scan itself. I offered to continue with aggressive therapy or remove all with aggressive care. After speaking with her family, the daughter indicated to me that Mr. Royal fortune would not want aggressive care unless he could be guaranteed of returning to independence. That is unlikely after this hemorrhage. After discussion, she elected to forego the ventilator and the external ventricular drain. We will c lamp the drain. We will extubate the patient; he will be made DNR and DNI. I discussed with those w ith regards to his future care and we will start to cut some comfort measures.
--- NOTE | 2018-01-17 19:59 | OP ---
DATE OF PROCEDURE: 01/13/2018 HISTORY OF PRESENT ILLNESS: Mr. Conde is a 72-year-old male who presented in need of an external ventricular drain after having found on CT scan a left thalamic hemorrhage with a large intraventricular hemorrhagic expansion. It was associated with an an 8 mm left to right midline shift. DIAGNOSES: Increased intracranial pressure, ventricular hemorrhagic extension from left thalamus, inability to localize to pain stimulus. PROCEDURE Location: The procedure was performed at [facility] ER 11. PHYSICIAN IMMIGRATION COORDINATOR; Evaristo Ovalle PA-C PHYSICIAN: Dr. Scotty GOINS. OPERATIVE PROCEDURE: Right-sided External Ventricular Drain PREOPERATIVE MEDICATIONS: The patient was put on Vancomycin 1.5 grams q.12 hours. CONSENT: We were unable to obtain consent at this time as it was an emergency life saving operation. Mr. Hastings family could not be found at time of consent. DESCRIPTION OF THE PROCEDURE: The patient was intubated and sedated. He was raised to approximately 45 degrees. This area of hair was shaved on the right side of his head. The scalp was sterilely prepped with DuraPrep and draped. I injected 5 mL of 1% lidocaine with epinephrine into the scalp over the incision which helped control bleeding. The point of incision was marked at the mid pupillary region 11 cm posterior to the nasion and 3 mm to the right of the midline at the mid pupillary region or Kochers point. A one inch incision was made with a 15 blade skin knife at Isaak's point. A retractor was placed and the periosteal layer was scraped to the side with a periosteal elevator. The coronal suture was palpated posterior to the point of entrance into the skull.. A handheld drill was used to drill a gray hole through the outer cortex, inner cancellous bone and through the inner table, until the drill sank through the inner table. I then withdrew the drill bit and used a needle to puncture the dura. I then used the EVD stylet and aimed it at the ipsilateral medial canthus, parallel to the alfredito. I inserted approximately 6 cm and got good return of bloody cerebrospinal fluid. I then tunneled a needle to exit the scalp posterior to the incision. The EVD drain exited the scalp at that point. I was able to secure the EVD in place and put 3 junior over the incision. The EVD tubing was secured in place on the scalp by several sutures. A 4 x 4 was used to cover the incision and the EVD tubing. A Tegaderm was applied over the area of incision to decrease risk of infection. The EVD tubing was connected to the Villar drainage system. The system was opened at 5 cm of water, adjusted at the level of the patient's tragus. Overnight left the EVD will be left open at 5 cm of water. The procedure was a clean case. There is no contamination noted. ESTIMATED BLOOD LOSS: Approximately 5 mL. Prior to this operation platelet count and coagulation labs were resulted and were normal. The patient will continue on vancomycin antibiotic as long as the EVD is in place for infection prevention. We will get a repeat CT scan of the brain tomorrow morning at 0400. [facility]
--- NOTE | 2018-01-17 22:36 | PDOC.PN ---
- Subjective Encounter Start Date: 01/17/18 Encounter Start Time: 17:00 Patient seen and examined. Extubated after family meeting with Neurosurgery - Objective Resuscitation Status: Resuscitation Status DNR:Do Not Resuscitate MAR Reviewed: Yes Vital Signs & Weight: Vital Signs (12 hours) Temp Pulse Resp BP Pulse Ox 01/17/18 20:00 98.8 F 116 H 22 H 72 L 01/17/18 14:57 82 155/60 H 01/17/18 14:00 18 01/17/18 13:00 100.3 F H 01/17/18 12:00 13 Weight Admit Weight 137 lb 9.095 oz Weight 138 lb 4.8 oz Most Recent Monitor Data Heart Rate from ECG 119 NIBP 133/80 NIBP BP-Mean 89 Respiration from ECG 18 SpO2 81 I&O: 01/16/18 01/17/18 01/18/18 06:59 06:59 06:59 Intake Total 2862 3020 1350 Output Total 1427 1779 1723 Balance 1435 1241 -373 Result Diagrams: 01/17/18 04:45 01/17/18 04:45 EKG Reviewed by me: Yes (Tele SR) Phys Exam - Physical Examination Pt in resp distress Respiratory: no wheezing, no rhonchi Coarse BS B/L Cardiovascular: RRR, no rub Gastrointestinal: soft, non-tender, positive bowel sounds Musculoskeletal: no edema Dx/Plan - Plan plan discussed w/ family, DVT proph w/SCDs IMPRESSION: 1. HTN 2. ICH - Mngt per Primary team 3. Acute respiratory failure on [facility] ventilation due to #2 - extubated 01/17 4. h/o Rt thalamic bleed in 2013 PLAN: * Will transfer to Oncology * Morphine/Ativan PRN * Will sign off. Review of Systems - Review of Systems Other: Cannot obtain due to current mentation - Medications/Allergies Allergies/Adverse Reactions: Allergies Allergy/AdvReac Type Severity Reaction Status Date / Time No Known Drug Allergies Allergy Verified 01/13/18 20:28 Medications: Current Medications Lorazepam (Ativan) 2 mg SLOW IVP Q2H PRN PRN Reason: Anxiety to achieve Barrera 2-3 Stop: 02/12/18 19:30 Last Admin: 01/17/18 16:20 Dose: 2 mg Lorazepam (Ativan) 1 mg SLOW IVP Q4H PRN PRN Reason: Anxiety/Agitation Morphine Sulfate (Morphine) 2 mg SLOW IVP Q15MIN PRN PRN Reason: Severe Pain (7-10) Last Admin: 01/17/18 17:52 Dose: 2 mg
--- NOTE | 2018-01-18 07:05 | PRG ---
DATE OF SERVICE: 01/18/2018 Mr. Conde is a 72-year-old male that I saw on the oncology floor this morning. He is not respondin g to me verbally and his neurologic status has declined. He was foaming at the mouth when I entered the room and his eyes were shut. Overnight, his vital signs were temperature 98.8, pulse 116, respir ations 22, O2 sat was 72%. Yesterday, he was made a DNR/DNI. This morning I will stop his diet and I discontinued the EVD from the right ventricle. If there are any further questions, please feel free to contact Neurosurgery. In the meantime, we wi ll continue to keep him comfortable.
--- NOTE | 2018-01-18 07:08 | PRG ---
DATE OF SERVICE: 01/18/2018 I saw Mr. Conde in our inpatient hospice room. His family elected to withdraw support yesterday an d we removed the EVD this morning. His neurological examination is unchanged. With stimulus he with draws left upper extremity. His eyes do not open quite as briskly as yesterday. Will make sure that Mr. Conde remains comfortable. Neurosurgery team will sign off the case for no w, but can be contacted should the need arise in the future.
[2018-01-18 09:19] VITALS: BP 150/70; TEMP 99.8
--- NOTE | 2018-01-18 09:19 | PRG ---
DATE OF SERVICE: 01/18/2018 He remains unresponsive. He was extubated yesterday. PHYSICAL EXAMINATION: VITAL SIGNS: Sats are 72 on room air, respiration 22, pulse 116, temperature 98, blood pressure 133/ 80. CHEST: No wheezing. CARDIAC: Normal S1, S2. No gallops. ABDOMEN: Soft, no masses. NEURO: Neurologically unresponsive. IMPRESSION: 1. End-stage intracerebral hemorrhage. 2. Respiratory failure. PLAN: I agree with comfort care. I will follow at a distance.
[2018-01-18] MEDS: Morphine 4 MG/ML VIAL SLOW IVP PRN (14:00)
== END 2018-01-18 17:20 | disposition hospice, inpatient (51) | DRG 23 ==
LOC: ERS 17:59 → CCU 19:51 → ONC 01-17 20:05
PROVIDERS: ADMIT Neurological Surgery; ATTEND Neurological Surgery
PROC: 009600Z Drainage of Cerebral Ventricle with Drainage Device, Open Approach (ICD-10-PCS; principal; 2018-01-13)
PROC: 5A1945Z Respiratory Ventilation, 24-96 Consecutive Hours (ICD-10-PCS; 2018-01-13)
DX: I61.5 Nontraumatic intracerebral hemorrhage, intraventricular (principal); G93.40 Encephalopathy, unspecified; J96.01 Acute respiratory failure with hypoxia; G81.91 Hemiplegia, unspecified affecting right dominant side; I10 Essential (primary) hypertension; Z66 Do not resuscitate; Z51.5 Encounter for palliative care; Z87.891 Personal history of nicotine dependence
CPT/HCPCS: 36415; 51702; 70450; 71045; 72125; 80048; 80053; 80202; 81003; 81015; 82150; 82805; 85025; 85610; 85730; 86850; 86900; 86901; 93005; 94002; 94003; 94760; 96365; 99292; C9113; G0390; J2001; J2060; J2270; J2704; J3370; J7050

== ENCOUNTER 2018-01-18 17:19 | Inpatient (IN) | payer OTHER ==
[2018-01-18] MEDS ORDERED: chlorproMAZINE HCl 50 MG/2 ML AMP IM PRN ×2 (17:41)
[2018-01-18] MEDS ORDERED: Ondansetron ODT 4 MG TAB PO PRN (17:41)
[2018-01-18] MEDS ORDERED: Acetaminophen 650 MG Suppository PR PRN (17:41)
[2018-01-18] MEDS ORDERED: Scopolamine 1.5 mg/72 hour Patch TOP PRN ×2 (17:41)
[2018-01-18] MEDS ORDERED: Lorazepam 1 MG TAB PO PRN ×2 (17:41)
[2018-01-18] MEDS ORDERED: diphenhydrAMINE 25 MG CAP PO PRN (17:41)
[2018-01-18] MEDS ORDERED: Zolpidem Tartrate 5 MG TAB PO PRN (17:41)
[2018-01-18] MEDS ORDERED: chlorproMAZINE HCl 25 MG in Sodium Chloride 0.9% 50 ML IVPB PRN (17:41)
[2018-01-18] MEDS ORDERED: Senokot 8.6 MG TAB PO PRN (17:41)
[2018-01-18] MEDS ORDERED: Promethazine HCl 25 MG SUPP PR PRN (17:41)
[2018-01-18] MEDS ORDERED: Milk Of Magnesia 30 ML UDCUP PO PRN (17:41)
[2018-01-18] MEDS ORDERED: Loperamide HCl 2 MG CAP PO PRN (17:41)
[2018-01-18] MEDS ORDERED: diphenhydrAMINE 50 MG/ML VIAL IVP PRN (17:41)
[2018-01-18] MEDS ORDERED: Acetaminophen 325 MG TAB PO PRN (17:41)
[2018-01-18] MEDS ORDERED: Lorazepam 2 MG/ML VIAL SLOW IVP PRN (17:41)
[2018-01-18] MEDS ORDERED: Haloperidol Lactate 5 MG/ML VIAL SLOW IVP PRN (17:41)
[2018-01-18] MEDS ORDERED: ALPRAZolam 0.25 MG TAB PO PRN (17:41)
[2018-01-18] MEDS ORDERED: Ondansetron HCl/PF 4 MG/2 ML Vial IVP PRN (17:41)
[2018-01-18] MEDS ORDERED: Hyoscyamine Sulfate SL 0.125 mg Tablet SL PRN (17:41)
[2018-01-18] MEDS ORDERED: Ibuprofen 200 MG TAB PO PRN (17:55)
[2018-01-18] MEDS ORDERED: Haloperidol 1 MG TAB PO PRN (17:56)
[2018-01-18] MEDS ORDERED: CHLORPROMAZINE PR PRN (17:58)
--- NOTE | 2018-01-19 07:24 | PRG ---
DATE OF SERVICE: 01/19/2018 NEUROSURGERY PROGRESS NOTE SUBJECTIVE: Mr. Conde is in inpatient hospice care. He seems comfortable when I saw him this morn ing. I missed the family once again this morning and I did not see them yesterday. We will continue to follow.
[2018-01-19] MEDS: Morphine 10 MG/0.5 ML ORAL SYRINGE SL PRN ×3 (07:58→18:28)
[2018-01-19] MEDS: Lorazepam 2 MG/ML VIAL SLOW IVP PRN ×2 (08:01→16:01)
[2018-01-19 20:08] VITALS: BP 121/80; TEMP 99.4
--- NOTE | 2018-01-19 21:26 | PRG ---
DATE OF SERVICE: 01/19/2018 SUBJECTIVE: Mr. Conde is status post large left thalamic hemorrhage and intraventricular hemorrhag e. Yesterday, I pulled the external ventricular drain. There has been no change in his neuro status today. He seems to be comfortably lying in his bed. He was transitioned to inpatient hospice after that. I see no family in the room since yesterday. Please continue to keep him comfortable while h e is not inpatient hospice. If there are any further questions, please free to contact Neurosurgery.
[2018-01-20] MEDS: Morphine 10 MG/0.5 ML ORAL SYRINGE SL PRN (03:10)
--- NOTE | 2018-02-02 07:36 | DS ---
HISTORY OF PRESENT ILLNESS: Mr. Conde is a 72-year-old male who I saw after presenting to the Emergency Department with a large left thalamic hemorrhage and intraventricular hemorrhage. The patient was found down by his family in his garden unresponsive. EMS brought him to the emergency department where a CT was done that showed the above findings. Because of his state of unconsciousness he was unable to respond. At the time of examination on physical exam pupils were 1 mm, nonreactive to light. Positive corneal reflex. He withdrew to pain in the lower extremities bilaterally. He localize to pain in the left upper extremity and there is no purposeful movement in the right upper extremity. The patient had a positive gag reflex. Because of these findings and the large intraventricular hemorrhage I placed an EVD in the right calvarium at Isaak's point. There was no family around at time of EVD placement for consent, but since this was a life saving procedure, after checking coags, platelets and giving pre-op abx the EVD was placed. EVD was in place for 2 days until family decided to change his status to DNR. At this time the EVD was taken out and the incision in scalp was stapled shut. While at [facility] he was intubated until his DNR status changed. His neurologic exam declined slowly each day and became less purposeful when pain was elicited to the point where he was unable to respond to painful stimuli or withdraw or localize to pain. Repeat CT scans of the brain were taken on 01/14/2018, 01/15/2018 and 01/17/2018 that showed slight worsening of the hemorrhage. The patient continued to decline neurologically and medically until he was placed on oncology floor in inpatient palliative care where he had respiratory failure and was pronounced on 01/18/2018. His brainstem reflexes were nonexistent. The [place] [facility] [place] If there are any further questions, please feel free to contact Neurosurgery. [facility]
== END 2018-01-20 03:35 | disposition expired | DRG 951 ==
LOC: ONC 17:19
PROVIDERS: ADMIT Neurological Surgery; ATTEND Neurological Surgery
DX: Z51.5 Encounter for palliative care (principal); I61.5 Nontraumatic intracerebral hemorrhage, intraventricular; Z66 Do not resuscitate
CPT/HCPCS: J2060; J3230; J7050